=== PATIENT | male | born 1965 | race Caucasian/White ===

== ENCOUNTER → 2018-03-15 | Outpatient (CLI) | payer BC ==
[~2018-03-15] MED LIST: RECEIVED CONTRAST (Hold Metformin) IV SCH
[2018-03-15] MEDS: IOHEXOL 350 MG/ML 100 ML (OMNIPAQUE 350) VIAL IV ONE (10:22)
[2018-03-15] MEDS: NS 100 ML (IVPB) BAG IV ONE (10:23)
--- NOTE | 2018-03-15 12:37 | Diagnostic Imaging Report ---
PROCEDURE: CT abdomen and pelvis with contrast. TECHNIQUE: Multiple contiguous axial images were obtained through the abdomen and pelvis after administration of intravenous contrast. DATE: March 15, 2018. COMPARISON: None. INDICATION: 52-year-old male, blood in sperm for at least 1.5 months. FINDINGS: There is very minimal atelectasis in the dependent aspects of the right and left lower lobes as well as in the lingula. Additional visualized portions of the lung bases are clear. The heart is not enlarged. There is no identified pericardial effusion. The liver is normal in size and contour. There is no identified liver lesion. The main, right, and left portal veins are patent. The gallbladder is unremarkable. There is no identified intrahepatic or extrahepatic bile duct dilation. The main pancreatic duct is normal in caliber. Unremarkable appearance of the pancreatic parenchyma. The spleen is normal in size. The adrenal glands are unremarkable. The kidneys are slightly abnormally rotated. Unremarkable appearance of the renal parenchyma. The urinary collecting systems are not distended. There is no identified renal or ureteral stone. There does appear to be mild diffuse urinary bladder wall thickening which may relate to cystitis and/or chronic outlet obstruction. The prostate gland is not grossly enlarged. There is very mild diverticulosis without evidence of acute diverticulitis. The intestinal tract is not distended. The appendix is best seen on axial image 70 and adjacent sequential images. There is no evidence of acute appendicitis. There is a small fat-containing paraumbilical hernia. There is no free intraperitoneal air. There is no drainable fluid collection. There is no free pelvic fluid. There is a very small fat-containing right inguinal hernia. There is a circumaortic left renal vein. There is no identified abnormally enlarged lymph node in the abdomen or pelvis which specifically meets CT size criteria for adenopathy. There are degenerative changes of the spine. There is no identified acute bony abnormality. IMPRESSION: CT ABDOMEN AND PELVIS. 1. Mild diffuse urinary bladder wall thickening which may potentially relate to cystitis and/or chronic outlet obstruction. 2. Small fat-containing right paraumbilical hernia and very small fat-containing right inguinal hernia. Dictated by: Dictated on workstation # [id number]
== END ==
LOC: RAD 09:47
PROVIDERS: ATTEND Urology
DX: N32.89 Other specified disorders of bladder (principal); K42.9 Umbilical hernia without obstruction or gangrene; K40.90 Unilateral inguinal hernia, without obstruction or gangrene, not specified as recurrent; R36.1 Hematospermia
CPT/HCPCS: 74177

== ENCOUNTER → 2018-06-03 | Outpatient (CLI) | payer BC ==
[~2018-06-03] MED LIST changes: +CATHETER FLUSH 10 ML SYR IV SCH; +HYDR-3816 PO; -RECEIVED CONTRAST (Hold Metformin) IV SCH
--- NOTE | 2018-06-03 11:34 | Diagnostic Imaging Report ---
INDICATION: Abdominal pain and bloating. TECHNIQUE: Acquisitions were acquired of the abdomen after administration of 5.26 mCi of technetium 99m Choletec. Ejection fraction was calculated after the patient ingested an 8 ounce can of Ensure. FINDINGS: There is homogeneous uptake of isotope throughout the liver. There is significant accumulation within the gallbladder by 30 minutes. There is free flow of activity in the small bowel. Ejection fraction is 77%. IMPRESSION: Normal hepatobiliary scan and ejection fraction. Dictated by: Dictated on workstation # [id number]
== END ==
LOC: CARD 09:01
PROVIDERS: ATTEND Surgery
DX: R14.0 Abdominal distension (gaseous) (principal)
CPT/HCPCS: 78227

== ENCOUNTER 2018-06-11 13:15 | Outpatient (CLI) | payer BC ==
[~2018-06-11] VITALS: Ht 170.2 cm; Wt 88.9 kg
[2018-06-13] MEDS ORDERED: HYDR-3816 PO (08:27)
== END 2018-06-11 13:40 | disposition home or self-care (01) ==
LOC: PREOP 13:15
PROVIDERS: ATTEND Surgery
DX: Z01.818 Encounter for other preprocedural examination (principal)

== ENCOUNTER → 2018-06-13 | Day surgery (SDC) | payer BC ==
[2018-06-13] VITALS (13 sets, daily range): BP systolic 105–134; BP diastolic 61–82
[~2018-06-13] VITALS: Ht 170.2 cm; Wt 88.9 kg
[~2018-06-13] MED LIST changes: +ACETAMINOPHEN 325 MG TABLET PO PRN; +BUP/EPI 0.5% 1:200,000 (SENSORCAINE) 30 ML VIAL ONE; -CATHETER FLUSH 10 ML SYR IV SCH; +DEXAMETHASONE 10 MG/ML (DECADRON) 1 ML VIAL ONE; +GLYCOPYRROLATE 0.2 MG/ML (ROBINUL) 2 ML VIAL ONE; +HYDROcodone/APAP 5 MG/325 MG (LORTAB) TAB PO ONE; +HYDROmorphone 2 MG/ML VIAL (DILAUDID) IV ONE; +LIDOCAINE PF 2% 5 ML (XYLOCAINE) VIAL ONE; +MEPERIDINE (DEMEROL) INJ 50 MG/ML IVP ONE; +MIDAZOLAM 2 MG/2 ML (VERSED) VIAL ONE; +NEOSTIGMINE 1 MG/ML 5 ML SYRINGE ONE; +ONDANSETRON 4 MG/2 ML (SDV) Z0FRAN IVP PRN; +ONDANSETRON 4 MG/2 ML (SDV) Z0FRAN ONE; +ROCURONIUM 10 MG/ML 5 ML SYRINGE IV ONE; +SEVOFLURANE (ULTANE) 15 ML INHAL SOLN ONE; +ceFAZolin 2 GM IV Premixed 50 ML IV ONE; +fentaNYL INJECTION 100 MCG/2 ML AMP ONE; +morphine INJ 10 MG/ML 1ML (SYR OR VIAL) IVP ONE; +morphine INJ 10 MG/ML 1ML (SYR OR VIAL) IVP PRN; +proPOfol 200 MG/20 ML (DIPRIVAN) VIAL IV ONE
--- OUTSIDE RECORDS SUMMARY | 2018-06-13 07:04 | XMS REPORT ---
Author Author MYKEL ORTIZ Organization [facility] Address [address] [place] [address] Care Team Providers Care Boiler House Inspector Name Role Phone MYKEL ORTIZ Unavailable PROBLEMS Type Condition ICD9-CM Code FOC17-HO Code Onset Dates Condition Status SNOMED Code Problem Other chronic pain G89.29 Active [id number] ALLERGIES No Known Allergies ENCOUNTERS Encounter Location Date Diagnosis [facility] [address] [facility] [id number] [address] May, Other chronic pain G89.29 ; Pain in left hip M25.552 and Pain in left foot M79.672 IMMUNIZATIONS No Known Immunizations SOCIAL HISTORY Never Assessed REAS[facility] FOR VISIT [facility] V[facility]NS Height 67 in 2017-06-04 Weight 183.6 lbs 2017-06-04 Temperature 98.1 degrees Fahrenheit 2017-06-04 Heart Rate 76 bpm 2017-06-04 Respiratory Rate 18 2017-06-04 BMI 28.75 kg/m2 2017-06-04 Blood pressure systolic 114 mmHg 2017-06-04 Blood pressure diastolic 82 mmHg 2017-06-04 MEDICATIONS Medication Instructions Dosage Frequency Start Date End Date Duration Status Diclofenac Sodium 75 MG Orally Twice a day 1 tablet with food or milk 12h May, Jul, 30 day(s) Active RESULTS Name Result Date Reference Range Xray : Hip, Left 2 views (IN HOUSE) 2017-06-04 Xray : Foot, Left 3 views (IN HOUSE) 2017-06-04 PROCEDURES Procedure Date Ordered Result Body Site X-RAY EXAM HIP UNI 2-3 VIEWS June 04, 2017 X-RAY EXAM OF FOOT June 04, 2017 INSTRUCTIONS MEDICATIONS ADMINISTERED No Known Medications
[2018-06-13] MEDS: LACTATED RINGERS 1,000 ML IV PRN ×2 (07:30→10:25)
[2018-06-13 07:46] LABS: BASOPHILS % (AUTO) 0 % (0-10); EOSINOPHILS # (AUTO) 0.1 10^3/uL (0.0-0.3); EOSINOPHILS % (AUTO) 3 % (0-10); HEMATOCRIT 42 % (40-54); HEMOGLOBIN 14.4 G/DL (13.3-17.7); LYMPHOCYTES # (AUTO) 1.8 X 10^3 (1.0-4.0); LYMPHOCYTES % (AUTO) 36 % (12-44); MEAN CORPUSCULAR HEMOGLOBIN 31 PG (25-34); MEAN CORPUSCULAR HGB CONC 35 G/DL (32-36); MEAN CORPUSCULAR VOLUME 89 FL (80-99); MEAN PLATELET VOLUME 10.1 FL (7.4-10.4); MONOCYTES # (AUTO) 0.5 X 10^3 (0.0-1.0); MONOCYTES % (AUTO) 10 % (0-12); NEUTROPHILS # (AUTO) 2.6 X 10^3 (1.8-7.8); NEUTROPHILS % (AUTO) 51 % (42-75); PLATELET COUNT 216 10^3/uL (130-400); RED CELL DISTRIBUTION WIDTH 13.3 % (10.0-14.5); WHITE BLOOD COUNT 5.1 10^3/uL (4.3-11.0)
--- NOTE | 2018-06-13 08:21 | Progress Note-Pre Operative ---
Pre-Operative Progress Note H&P Reviewed The H&P was reviewed, patient examined and no changes noted. Date Seen by Provider: June 13, 2018 Time Seen by Provider: 08:20 Date H&P Reviewed: June 13, 2018 Time H&P Reviewed: 08:15 Pre-Operative Diagnosis: Symptomatic umbilical hernia, Bilateral inguinal pain SARI SIMPSON APRN June 13, 2018 08:21
--- NOTE | 2018-06-13 08:27 | Discharge Inst-Surgical ---
D/C Lap Instructions-KIDO New, Converted, or Re-Newed RX: RX on Chart Follow Up Appt in 2 weeks Activity as tolerated No driving for 24 hours No driving while on pain medications Incentive Spirometry use every 2 hours while awake Regular Diet Symptoms to Report: Fever over 101 degree F, Nausea/Vomiting Infection Signs and Symptoms to report: Increased redness, Foul odor of wound, Increased drainage Bathing instructions: May shower Operative Area Clean/Dry; Keep incision clean/dry If any problems/questions: Contact your physician or go to Emergency Room SARI SIMPSON APRN June 13, 2018 08:27
--- NOTE | 2018-06-13 11:07 | Progress Note-Post Operative ---
Post-Operative Progess Note Surgeon (s)/Can Filling Room Sweeper (s) Surgeon ALLAN GOODRICH MD Can Filling Room Sweeper: candida clinton DIRECTOR OF SPEECH PATHOLOGY Pre-Operative Diagnosis Symptomatic umbilical hernia, Bilateral inguinal pain Post-Operative Diagnosis small reducible umbilical hernia, small recurrent right pre peritoneal inguinal hernia, no recurrent left inguinal hernia. Procedure & Operative Findings Date of Procedure 06/13/18 Procedure Performed/Findings laparoscopic recurrent right inguinal hernia repair with mesh and umbilical hernia repair with mesh. Anesthesia Type get Estimated Blood Loss Estimated blood loss (mL): minimal Specimens/Packing Specimens Removed none ALLAN GOODRICH MD June 13, 2018 11:07
--- NOTE | 2018-06-13 12:07 | Anesthesia-General Post-Op ---
General Patient Condition Mental Status/LOC: Same as Preop Cardiovascular: Satisfactory Nausea/Vomiting: Absent Respiratory: Satisfactory Pain: Controlled Complications: Absent Post Op Complications Complications None Follow Up Care/Instructions Patient Instructions None needed. Anesthesia/Patient Condition Patient Condition Patient is doing well, no complaints, stable vital signs, no apparent adverse anesthesia problems. No complications reported per nursing. JODI TROTTER CRNA June 13, 2018 12:07
--- NOTE | 2018-06-13 16:27 | OPERATIVE REPORT ---
DATE OF SERVICE: 06/13/2018 ATTENDING PRIMARY CARE PHYSICIAN: Dr. Ramos. PREOPERATIVE DIAGNOSES: Symptomatic reducible umbilical hernia and a small right inguinal hernia. PROCEDURES PERFORMED: 1. Laparoscopic right inguinal hernia repair with mesh. 2. Laparoscopic umbilical hernia repair with mesh. SURGEON: Allan Goodrich MD. MICROECONOMICS PROFESSOR: Robbi Richardson APRN. ANESTHESIA: General endotracheal. ESTIMATED BLOOD LOSS: Minimal. FINDINGS: No left inguinal hernia component identified. A small right preperitoneal inguinal hernia. A small umbilical hernia approximately 1.5 cm in size. The omentum, small bowel and colon appeared normal. DISPOSITION: The patient tolerated the procedure well. INDICATIONS: The patient is a 52-year-old male, who was initially referred over to us for a symptomatic umbilical hernia. He noticed this several years ago and it has grown larger in size and become more painful. This was examined and found to be reducible; however, painful. He had also reported some question of abdominal bloating and distention, occasional pain in the right upper abdominal quadrant; however, he underwent an ultrasound, which did not show any gallstones and a HIDA scan, which showed a normal ejection fraction and he did not have symptoms. A CT scan also was performed, which did show a small right inguinal hernia. He also was found to have diverticulosis. DESCRIPTION OF PROCEDURE: The patient was brought to the operating room and laid supine on the table. After adequate IV pain and sedative medications and general endotracheal intubation, the abdomen was prepped and draped in a standard surgical fashion. A 0.5% Marcaine with epinephrine was used to anesthetize the overlying skin in the infraumbilical rim and a crescent shaped skin incision was made using a 15 blade. The abdominal wall was then retracted anteriorly and a Veress needle inserted with a low opening pressure of 0 mmHg. The abdomen was then insufflated to 15 mmHg pressure. The Veress needle removed and a 5 mm Xcel trocar was placed followed by a 10 mm trocar placed followed by a 10 mm 45-degree angle laparoscope visualizing the peritoneal cavity. The trocar was placed through the hernia defect. A four-quadrant abdominal exploration was performed. There was no recurrent left inguinal hernia component. There was a recurrent right inguinal hernia identified, which appeared to be small and majority of preperitoneal fat, which would protrude within the peritoneal lining upon palpation of the right inguinal region. What was visualized of the omentum, small bowel and colon appeared normal. There were some mild adhesions of the colon towards the peritoneal lining, which may indicate a mild diverticulitis in the past. Under direct visualization, we then proceeded to place bilateral 5 mm ports under direct visualization after the skin and peritoneal lining were anesthetized using 0.5% Marcaine with epinephrine and a transverse skin incision was made using a 15 blade. The patient was then placed in Trendelenburg position. The peritoneal lining was then opened in the right inguinal region starting laterally towards the conjoint tendon and inguinal ligament. We then proceeded medially toward Trenton's ligament. The peritoneal lining was then dissected inferiorly encompassing the preperitoneal fat within the defect. The cord and its contents identified and spared throughout the process. Good hemostasis was observed. A medium size polypropylene mesh was then placed into the defect and the mesh was tacked to the Trenton's ligament medially using an absorbable tacker and the conjoint tendon laterally. The lining was then placed completely over the mesh and a few tacks were placed to hold this in place with visualization of good hemostasis. We then proceeded with repair of the umbilical hernia. The hernia sac was dissected using the Sonicision. The defect itself was only approximately 1.5 cm in size. A 6.4 cm coated polypropylene mesh was then placed into the defect and a few tacks were placed on the outer edge. We then proceeded to place transfascial sutures on four corners of the fascia to the mesh using a 0 Prolene suture. The abdomen was desufflated. The remaining ports were removed. All the skin incisions were then closed using 4-0 Monocryl running subcuticular sutures. Wounds were then cleaned and covered with Dermabond. The patient tolerated the procedure well. We will start IV and oral pain medication as well as a clear liquid diet. Once he is tolerating clears, has good pain control with oral pain medications and ambulating well, we will discharge him home. Job ID: [id number] DocumentID: [id number] Dictated Date: 06/13/2018 10:53:15 Financial Services Specialist Date: 06/13/2018 15:23:29 Dictated By: ALLAN GOODRICH MD
== END | disposition home or self-care (01) ==
LOC: SDC 07:00
PROVIDERS: ATTEND Surgery
DX: K40.91 Unilateral inguinal hernia, without obstruction or gangrene, recurrent (principal); K42.9 Umbilical hernia without obstruction or gangrene; G57.92 Unspecified mononeuropathy of left lower limb; Z87.891 Personal history of nicotine dependence
CPT/HCPCS: 36415; 85025; 87081; 94664

== ENCOUNTER → 2018-10-08 | Outpatient (CLI) | payer BC ==
[~2018-10-08] MED LIST changes: -ACETAMINOPHEN 325 MG TABLET PO PRN; -BUP/EPI 0.5% 1:200,000 (SENSORCAINE) 30 ML VIAL ONE; -DEXAMETHASONE 10 MG/ML (DECADRON) 1 ML VIAL ONE; -GLYCOPYRROLATE 0.2 MG/ML (ROBINUL) 2 ML VIAL ONE; -HYDROcodone/APAP 5 MG/325 MG (LORTAB) TAB PO ONE; -HYDROmorphone 2 MG/ML VIAL (DILAUDID) IV ONE; -LIDOCAINE PF 2% 5 ML (XYLOCAINE) VIAL ONE; -MEPERIDINE (DEMEROL) INJ 50 MG/ML IVP ONE; -MIDAZOLAM 2 MG/2 ML (VERSED) VIAL ONE; -NEOSTIGMINE 1 MG/ML 5 ML SYRINGE ONE; -ONDANSETRON 4 MG/2 ML (SDV) Z0FRAN IVP PRN; -ONDANSETRON 4 MG/2 ML (SDV) Z0FRAN ONE; -ROCURONIUM 10 MG/ML 5 ML SYRINGE IV ONE; -SEVOFLURANE (ULTANE) 15 ML INHAL SOLN ONE; -ceFAZolin 2 GM IV Premixed 50 ML IV ONE; -fentaNYL INJECTION 100 MCG/2 ML AMP ONE; -morphine INJ 10 MG/ML 1ML (SYR OR VIAL) IVP ONE; -morphine INJ 10 MG/ML 1ML (SYR OR VIAL) IVP PRN; -proPOfol 200 MG/20 ML (DIPRIVAN) VIAL IV ONE
--- NOTE | 2018-10-08 18:29 | Diagnostic Imaging Report ---
PROCEDURE: CT abdomen and pelvis without contrast. TECHNIQUE: Multiple contiguous axial images were obtained through the abdomen and pelvis without the use of intravenous contrast. Auto Exposure Controls were utilized during the CT exam to meet ALARA standards for radiation dose reduction. INDICATION: Hematuria, right lower quadrant pain. COMPARISON: None available. FINDINGS: Evaluation of the abdominal viscera is mildly limited without contrast. Lower chest: The lung bases are clear. No pericardial or pleural effusion. Peritoneum: No free intraperitoneal air or fluid. Liver and biliary system: Unenhanced liver is normal. The gallbladder is normal. No biliary duct dilation. Spleen and Pancreas: Spleen is normal. Unenhanced pancreas is grossly normal. Adrenals: Normal. tract: No renal or ureteral calculi. No obstructive uropathy. No solid renal mass is appreciated by noncontrast imaging. Prostate is not enlarged. GI tract: Stomach is partially filled with fluid and air. No bowel obstruction. No pericolonic inflammatory changes. Normal appendix. Vasculature and Lymph nodes: Normal caliber aorta. No abdominal or pelvic lymphadenopathy. Musculoskeletal: No concerning osseous lesion. No inguinal, pelvic or abdominal hernia. There appears to be prior repair of a ventral umbilical hernia. IMPRESSION: 1. No urinary tract calculi or features of renal mass. 2. No recurrent abdominal, pelvic or inguinal hernia. Dictated by: Dictated on workstation # [id number]
== END ==
LOC: RAD 18:03
PROVIDERS: ATTEND Urology
DX: R31.9 Hematuria, unspecified (principal); R10.31 Right lower quadrant pain
CPT/HCPCS: 74176